=== PATIENT | male | born 1955 | race Caucasian/White ===

== ENCOUNTER 2016-07-16 12:10 | Emergency (ER) | payer OTHER, MEDICAID ==
[~2016-07-16] VITALS: Ht 182.9 cm; Wt 119.5 kg
[2016-07-16 13:01] LABS: Urine Bilirubin Negative (Negative); Urine Blood 2+ /uL (Negative); Urine Color Yellow (Yellow); Urine Glucose Normal (Normal); Urine Ketone Negative (Negative); Urine Nitrite Negative (Negative); Urine RBC 1636 /hpf (0 - 3); Urine Urobilinogen Normal (Negative)
[2016-07-16 13:04] LABS: Basophils # (auto) 0.1 uL; Basophils % (auto) 0.7 % (0.0-2.0); Eosinophils # (auto) 0.1 uL; Eosinophils % (auto) 1.2 % (0.0-7.0); Hematocrit 42.8 % (41.0-53.0); Hemoglobin 13.6 g/dL (13.5-17.5); Lymphocytes # (auto) 2.1 uL; Lymphocytes % (auto) 19.6 % (10.0-50.0); Mean Corpuscular Hemoglobin 27.3 pg (28.0-32.0); Mean Corpuscular Hgb Conc. 31.9 g/dL (32.0-36.0); Mean Corpuscular Volume 85.7 fL (80.0-100.0); Mean Platelet Volume 8.1 fL (7.4-10.4); Monocytes # (auto) 0.7 uL; Monocytes % (auto) 7.1 % (0.0-12.0); Neutrophils # (auto) 7.5 uL; Neutrophils % (auto) 71.4 % (37.0-80.0); Platelet Count (auto) 370 10^3/uL (140-450); Red Cell Distribution Width 14.4 % (11.6-16.0); White Blood Cell 10.5 10^3/uL (4.4-10.8)
[2016-07-16 13:23] LABS: Albumin 3.2 g/dL (3.4-5.0); BUN/Creatinine Ratio 9.3; Bilirubin, Total 0.5 mg/dL (0.2-1.0); Calcium 9.6 mg/dL (8.5-10.1); Total Protein 7.4 g/dL (6.4-8.2)
[2016-07-16 14:35] VITALS: BP 114/72
[2016-07-16] MEDS ORDERED: SODIUM CHLORIDE 0.9% 250 ML IV ONE (15:19)
[2016-07-16] MEDS ORDERED: SODIUM CHLORIDE 0.9% 1,000 ML IV ONE (15:19)
[2016-07-16] MEDS ORDERED: KETOROLAC TROMETH 30 MG/ML 1ML VIAL IV ONE (15:30)
== END 2016-07-16 16:37 | disposition home or self-care (01) ==
LOC: ER 12:18
DX: N20.0 Calculus of kidney (principal); I48.91 Unspecified atrial fibrillation; J44.9 Chronic obstructive pulmonary disease, unspecified; E11.9 Type 2 diabetes mellitus without complications; Z79.4 Long term (current) use of insulin; I10 Essential (primary) hypertension
CPT/HCPCS: 36415; 74176; 80053; 81001; 85025; 96374; 99285; J1885

== ENCOUNTER 2017-10-03 14:20 | Emergency (ER) | payer OTHER, MEDICAID ==
[~2017-10-03] VITALS: Ht 170.2 cm; Wt 136.1 kg
[2017-10-03 14:57] VITALS: BP 161/96
[2017-10-03] MEDS ORDERED: BACITRACIN TOP OINT 1 UD PKG TOP ONE (15:15)
[2017-10-03] MEDS ORDERED: LIDOCAINE 1% (LOCAL ANESTH.) PF 5ml SDV ID ONE (15:15)
== END 2017-10-03 16:09 | disposition home or self-care (01) ==
LOC: ER 14:20 → EDBD 14:20 → ER 16:09
DX: S91.312A Laceration without foreign body, left foot, initial encounter (principal); I48.91 Unspecified atrial fibrillation; J44.9 Chronic obstructive pulmonary disease, unspecified; E11.9 Type 2 diabetes mellitus without complications; I50.9 Heart failure, unspecified; X58.XXXA Exposure to other specified factors, initial encounter; Y93.89 Activity, other specified; Y92.89 Other specified places as the place of occurrence of the external cause; Y99.8 Other external cause status
CPT/HCPCS: 12004

== ENCOUNTER 2018-12-17 10:56 | Emergency (ER) | payer OTHER, MEDICAID ==
[~2018-12-17] VITALS: Ht 182.9 cm; Wt 99.8 kg
[2018-12-17] MEDS ORDERED: ONDANSETRON HCL 4 MG/2 ML VIAL IV ONE (11:30)
[2018-12-17] MEDS ORDERED: HYDROmorphone HCL 2 MG/ML VL IV ONE ×2 (11:30→14:15)
[2018-12-17] MEDS ORDERED: TETANUS-DIPTH-ACEL PERTUSSIS 0.5ML SYRG IM ONE (12:00)
[2018-12-17] MEDS ORDERED: cefTRIAXone 1GM/50ML D5W 50 ML IV ONE (15:30)
[2018-12-17] MEDS ORDERED: LIDOCAINE 1% HCL (LOCAL ANESTH.) INJ 20ML MDV ONE (15:40)
[2018-12-17 17:30] VITALS: BP 121/68
== END 2018-12-17 17:42 | disposition short-term general hospital (02) ==
LOC: EDBD 10:56 → ER 10:56
DX: S32.049A Unspecified fracture of fourth lumbar vertebra, initial encounter for closed fracture (principal); S41.111A Laceration without foreign body of right upper arm, initial encounter; I48.91 Unspecified atrial fibrillation; J44.9 Chronic obstructive pulmonary disease, unspecified; E11.9 Type 2 diabetes mellitus without complications; F17.210 Nicotine dependence, cigarettes, uncomplicated; W14.XXXA Fall from tree, initial encounter; Y93.89 Activity, other specified; Y99.8 Other external cause status; Y92.89 Other specified places as the place of occurrence of the external cause
CPT/HCPCS: 12004; 72128; 72131; 72192; 90471; 90715; 96365; 96375; 96376; 99285; J0696; J1170; J2001; J2405

== ENCOUNTER 2019-01-05 17:39 | Emergency (ER) | payer OTHER, MEDICAID ==
[~2019-01-05] VITALS: Ht 152.4 cm; Wt 108.9 kg
[2019-01-05] MEDS ORDERED: KETOROLAC TROMETH 60MG/2ML VIAL IM ONE (23:00)
[2019-01-05] MEDS ORDERED: HYDROcodone-ACET 10/325MG TAB PO ONE (23:00)
[2019-01-05 23:56] LABS: Basophils # (auto) 0.1 uL; Eosinophils # (auto) 0.1 uL; Nucleated Red Blood Cells % 0.1 %
[2019-01-05 23:58] LABS: Basophils % (auto) 0.9 % (0.0-2.0); Eosinophils % (auto) 0.7 % (0.0-7.0); Hematocrit 33.1 % (41.0-53.0); Hemoglobin 10.4 g/dL (13.5-17.5); Lymphocytes # (auto) 1.5 uL; Lymphocytes % (auto) 12.6 % (10.0-50.0); Mean Corpuscular Hemoglobin 26.7 pg (28.0-32.0); Mean Corpuscular Hgb Conc. 31.4 g/dL (32.0-36.0); Mean Corpuscular Volume 84.8 fL (80.0-100.0); Monocytes # (auto) 0.9 uL; Monocytes % (auto) 7.3 % (0.0-12.0); Neutrophils # (auto) 9.6 uL; Neutrophils % (auto) 78.5 % (37.0-80.0); Platelet Count (auto) 531 10^3/uL (140-450); Red Cell Distribution Width 16.1 % (11.8-14.3); White Blood Cell 12.3 10^3/uL (4.4-10.8)
[2019-01-06 00:10] LABS: Alanine Aminotransferase 24 U/L (16-61); Albumin 2.7 g/dL (3.4-5.0); Anion Gap 9 (5-15); Aspartate Aminotransferase 30 U/L (15-37); BUN/Creatinine Ratio 10.6; Blood Urea Nitrogen 12 mg/dL (7-18); Calcium 8.6 mg/dL (8.5-10.1); Carbon Dioxide 36 mmol/L (21-32); Chloride 91 mmol/L (98-107); GFR African American 84 mL/min; GFR Non-African American 69 mL/min; Glucose 116 mg/dL (74-106); Potassium 3.5 mmol/L (3.5-5.1); Sodium 136 mmol/L (136-145)
[2019-01-06 00:15] LABS: Alkaline Phosphatase 191 U/L (45-117); Bilirubin, Total 0.3 mg/dL (0.2-1.0); Total Protein 7.3 g/dL (6.4-8.2)
[2019-01-06 00:18] LABS: INR 1.12 (0.9-1.15)
[2019-01-06] MEDS ORDERED: MORPHINE SULFATE 4 MG/ML SYR/VIAL IV ONE (09:45)
[2019-01-06] MEDS ORDERED: ONDANSETRON HCL 4 MG/2 ML VIAL IV ONE (09:45)
[2019-01-06 10:56] VITALS: BP 102/57
== END 2019-01-06 11:34 | disposition short-term general hospital (02) ==
LOC: EDUNIT# 17:39 → ER 17:39
DX: S32.049D Unspecified fracture of fourth lumbar vertebra, subsequent encounter for fracture with routine healing (principal); S32.029D Unspecified fracture of second lumbar vertebra, subsequent encounter for fracture with routine healing; I48.91 Unspecified atrial fibrillation; J44.9 Chronic obstructive pulmonary disease, unspecified; E11.9 Type 2 diabetes mellitus without complications; I10 Essential (primary) hypertension; F17.210 Nicotine dependence, cigarettes, uncomplicated; W14.XXXD Fall from tree, subsequent encounter
CPT/HCPCS: 36415; 71045; 72131; 80053; 84484; 85025; 85610; 93005; 96372; 96374; 96375; 99285; J1885; J2270; J2405

== ENCOUNTER 2019-04-03 11:19 | Inpatient (IN) | payer OTHER, MEDICAID ==
[~2019-04-03] VITALS: Ht 182.9 cm; Wt 105.0 kg
[2019-04-03] MEDS ORDERED: IPRATROPIUM BROM 0.5 MG/2.5ML INH SOL HHN ONE (11:45)
[2019-04-03] MEDS ORDERED: methylPREDNISolone SOD SUCC 125 MG/2 ML VL IV ONE (11:45)
[2019-04-03] MEDS ORDERED: ALBUTEROL SULF 2.5 MG/0.5ML(0.5%) NEB SOLN HHN ONE (11:45)
[2019-04-03 13:18] LABS: Basophils # (auto) 0 uL; Basophils % (auto) 0.1 % (0.0-2.0); Eosinophils # (auto) 0 uL; Lymphocytes # (auto) 2.3 uL
[2019-04-03 13:21] LABS: Eosinophils % (auto) 0.2 % (0.0-7.0); Hematocrit 35.4 % (41.0-53.0); Hemoglobin 10.7 g/dL (13.5-17.5); Lymphocytes % (auto) 18.1 % (10.0-50.0); Mean Corpuscular Hemoglobin 22.2 pg (28.0-32.0); Mean Corpuscular Hgb Conc. 30.2 g/dL (32.0-36.0); Mean Corpuscular Volume 73.6 fL (80.0-100.0); Monocytes % (auto) 7.8 % (0.0-12.0); Neutrophils # (auto) 9.5 uL; Neutrophils % (auto) 73.8 % (37.0-80.0); Platelet Count (auto) 376 10^3/uL (140-450); Red Blood Cells 4.81 10^6/uL (4.5-5.90); Red Cell Distribution Width 18.4 % (11.8-14.3); White Blood Cell 12.9 10^3/uL (4.4-10.8)
[2019-04-03 13:37] LABS: Anion Gap 6 (5-15); Blood Urea Nitrogen 13 mg/dL (7-18); Calcium 8.3 mg/dL (8.5-10.1); Carbon Dioxide 31 mmol/L (21-32); Chloride 104 mmol/L (98-107); Glucose 157 mg/dL (74-106); Magnesium 2.2 mg/dL (1.6-2.6); Potassium 3.4 mmol/L (3.5-5.1); Sodium 141 mmol/L (136-145)
[2019-04-03 13:43] LABS: Alanine Aminotransferase 14 U/L (16-61); Alkaline Phosphatase 93 U/L (45-117); Aspartate Aminotransferase 11 U/L (15-37); BUN/Creatinine Ratio 21.7; Bilirubin, Total 0.5 mg/dL (0.2-1.0); GFR African American 174 mL/min; GFR Non-African American 144 mL/min; Total Protein 7.1 g/dL (6.4-8.2)
[2019-04-03] MEDS ORDERED: ONDANSETRON HCL 4 MG/2 ML VIAL IV PRN (14:15)
[2019-04-03] MEDS ORDERED: DEXTROSE (50%) 50ML SYRG IV PRN (14:15)
[2019-04-03] MEDS ORDERED: DILTIAZEM HCL 120MG ER CAP PO ONE (14:15)
[2019-04-03] MEDS ORDERED: MORPHINE SULF INJ 2 MG/ML SYRINGE 1ML IV PRN ×2 (14:15)
[2019-04-03] MEDS ORDERED: HYDROcodone-ACET 5/325MG TAB PO PRN (14:15)
[2019-04-03] MEDS ORDERED: ACETAMINOPHEN 500 MG TAB PO PRN (14:15)
[2019-04-03] MEDS ORDERED: NITROGLYCERIN 0.4 MG SL TAB SL PRN (14:15)
[2019-04-03] MEDS: AZITHROMYCIN 500MG/ 250ML 250 ML IV SCH (14:41)
[2019-04-03] MEDS: cefTRIAXone 1GM/50ML D5W 50 ML IV SCH (14:41)
[2019-04-03 15:19] VITALS: BP 134/66
[2019-04-03 16:32] VITALS: BP 125/76
[2019-04-03] MEDS: InsuLIN REG 1unit/0.01ml Soln (100units/ml) SC SCH ×2 (17:31→21:07)
[2019-04-03] MEDS: ACCU-CHEK COMFORT CURVE STRIP VI SCH ×2 (17:31→21:07)
[2019-04-03] MEDS: buPROPion HCL 75 MG TAB PO SCH (18:43)
[2019-04-03] MEDS: IPRATROPIUM BROM 0.5 MG/2.5ML INH SOL NEB SCH (19:33)
[2019-04-03] MEDS: ALBUTEROL SULF 2.5 MG/0.5ML(0.5%) NEB SOLN NEB SCH (19:33)
[2019-04-03] MEDS: ATORVASTATIN 20 MG TAB PO SCH (21:06)
--- NOTE | 2019-04-03 21:30 | NUR ---
requested patient to bring home medications in or a medication list to clarify all medications taken. patient is aware of eliquis, norco, and lasix. Patient confirmed he will have a friend to bring medications or medication list.
[2019-04-03 21:39] VITALS: BP 150/74
[2019-04-03 21:43] LABS: Alcohol, Urine < 3.0 mg/dL (0-5); Amphetamine Screen, Urine NEGATIVE (NEGATIVE); Barbiturate Scree,Urine NEGATIVE (NEGATIVE); Benzodiazephine Screen, Urine NEGATIVE (NEGATIVE); Cannabinoid Screen, Urine NEGATIVE (NEGATIVE); Cocaine Screen, Urine NEGATIVE (NEGATIVE); Opiate Scree,Urine POSITIVE (NEGATIVE); Phencyclidine Screen, Urine NEGATIVE (NEGATIVE)
[2019-04-03] MEDS ORDERED: HYDR-531 PO (22:00)
[2019-04-03] MEDS ORDERED: APIX5TAB PO (22:00)
--- NOTE | 2019-04-03 22:00 | NUR ---
called hospitalist Srikanth to notify patient requesting enoch matias q4, roberto. awaiting call back.
[2019-04-03] MEDS ORDERED: FURO1TAB33 PO (22:01)
--- NOTE | 2019-04-03 22:41 | NUR ---
Spoke to Srikanth hospitalist and notified him of patient requesting eliquis, norco 10, and lasix. Srikanth advised me that he will look into medications.
[2019-04-03] MEDS: HYDROcodone-ACET 10/325MG TAB PO PRN (23:13)
[2019-04-04] MEDS: ALBUTEROL SULF 2.5 MG/0.5ML(0.5%) NEB SOLN NEB SCH ×4 (00:03→18:29)
[2019-04-04] MEDS: IPRATROPIUM BROM 0.5 MG/2.5ML INH SOL NEB SCH ×4 (00:03→18:29)
[2019-04-04] MEDS ORDERED: LUBI24CA6 PO (00:42)
[2019-04-04] MEDS ORDERED: DUTACAP PO (00:42)
[2019-04-04] MEDS ORDERED: METH750T3 PO (00:42)
[2019-04-04] MEDS ORDERED: PRE1T PO (00:42)
[2019-04-04] MEDS ORDERED: GABA-339 PO (00:42)
[2019-04-04] MEDS ORDERED: FURO40TA4 PO (00:42)
[2019-04-04] MEDS ORDERED: PANT1INJ3 PO (00:42)
[2019-04-04] MEDS ORDERED: DULO20CA PO (00:42)
--- NOTE | 2019-04-04 01:15 | NUR ---
completed medication reconciliation
[2019-04-04] MEDS: HYDROcodone-ACET 10/325MG TAB PO PRN ×4 (05:04→20:59)
[2019-04-04 05:16] VITALS: BP 151/74
[2019-04-04 05:24] LABS: Basophils # (auto) 0 uL; Basophils % (auto) 0.1 % (0.0-2.0); Eosinophils # (auto) 0 uL; Eosinophils % (auto) 0.1 % (0.0-7.0); Hemoglobin 10.9 g/dL (13.5-17.5); Lymphocytes # (auto) 0.6 uL; Lymphocytes % (auto) 4.7 % (10.0-50.0); Mean Corpuscular Hemoglobin 22.2 pg (28.0-32.0); Mean Corpuscular Hgb Conc. 29.5 g/dL (32.0-36.0); Mean Corpuscular Volume 75.3 fL (80.0-100.0); Monocytes # (auto) 0.4 uL; Monocytes % (auto) 2.7 % (0.0-12.0); Neutrophils # (auto) 12.3 uL; Neutrophils % (auto) 92.4 % (37.0-80.0); Nucleated Red Blood Cells % 0.4 %; Platelet Count (auto) 396 10^3/uL (140-450); Red Blood Cells 4.92 10^6/uL (4.5-5.90); Red Cell Distribution Width 18.8 % (11.8-14.3); White Blood Cell 13.3 10^3/uL (4.4-10.8)
[2019-04-04 05:43] LABS: Calcium 8.4 mg/dL (8.5-10.1); Potassium 4.7 mmol/L (3.5-5.1)
[2019-04-04 05:49] LABS: Albumin 3.2 g/dL (3.4-5.0); BUN/Creatinine Ratio 24.2; Bilirubin, Total 0.4 mg/dL (0.2-1.0); Total Protein 6.7 g/dL (6.4-8.2)
[2019-04-04] MEDS: InsuLIN REG 1unit/0.01ml Soln (100units/ml) SC SCH ×4 (06:32→22:23)
[2019-04-04] MEDS: buPROPion HCL 75 MG TAB PO SCH (06:32)
[2019-04-04] MEDS: ACCU-CHEK COMFORT CURVE STRIP VI SCH ×4 (06:32→22:20)
--- NOTE | 2019-04-04 08:00 | NUR ---
OPENING SHIFT NOTE ASSUMED CARE OF THE PATIENT FROM THE METAL INSPECTOR RN. THE PATIENT IS A&OX4, NO SIGNS OR SYMPTOMS OF DISTRESS. EDUCATED THE PATIENT ON POC. THE PATIENT'S BED IS IN THE LOWEST, LOCKED POSITION AND CALL LIGHT IS WITHIN REACH. WILL ROUND HOURLY AND CONTINUE TO MONITOR.
[2019-04-04 08:45] VITALS: BP 148/57
--- NOTE | 2019-04-04 09:45 | NUR ---
[employer] REGIONAL TRUCK DRIVER CONSULT/SECURITY CALLED WENT IN WITH CLASS A REGIONAL TRUCK DRIVER BECAUSE THE PATIENT HAD SAID HE WAS LIVING IN HIS CAR AND A CONSULT WAS PLACED. THE GENERAL INSPECTOR, SANGITA, BEGAN TO ASK THE PATIENT QUESTIONS REGARDING HIS LIVING SITUATION AND IT WAS HARD TO KEEP HIM FOCUSED ON THE CONVERSATION. SANGITA TRIED TO REDIRECT THE CONVERSATION BACK TO THE ASSESSMENT OF HIS NEEDS BUT HE BEGAN SAYING "YOU AREN'T GOING TO HELP ME. YOU'RE JUST GONNA KICK ME OUT." TRIED TO REASSURE THE PATIENT THAT WE WERE TRYING TO HELP HIM BUT WE NEEDED TO ASSESS HIS NEEDS. HE BEGAN TO YELL OBSCENITIES AT SANGITA AND MYSELF AND BEGAN THREATENING SANGITA AND MYSELF. AT THAT POINT SECURITY WAS CALLED TO TRY AND CALM THE PATIENT. THE PATIENT EVENTUALLY CALMED DOWN, BUT EASILY BECAME AGITATED AGAIN. CHARGE NOTIFIED. WILL CONTINUE TO MONITOR.
[2019-04-04] MEDS ORDERED: POTASSIUM CHL 20 Meq TABLET PO SCH (10:00)
[2019-04-04] MEDS: AZITHROMYCIN 500MG/ 250ML 250 ML IV SCH (10:01)
[2019-04-04] MEDS: cefTRIAXone 1GM/50ML D5W 50 ML IV SCH (10:01)
[2019-04-04] MEDS: DILTIAZEM HCL 120MG ER CAP PO SCH (10:01)
[2019-04-04] MEDS: FAMOTIDINE 20 MG TAB PO SCH (10:02)
[2019-04-04] MEDS: APIXABAN 5 MG TAB PO SCH ×2 (10:02→22:15)
[2019-04-04 13:00] VITALS: BP 153/66
--- NOTE | 2019-04-04 15:21 | NUR ---
assessment Patient is a 63 year old male who is alert and oriented. Patients cognitive abilities are intact. Prior to admission patient was homeless for 1 day. Patient informed me he signed out AMA from [employer] on Tuesday and drove up here to the [facility] and slept in his car. Patient then came to ER on yesterday and was admitted. Patient was being very aggressive to Unique ARCOS and myself. Patient was cursing and making threats. Patient is asking for Morphine and Diloted. Security had to be called on patient. The family in A bed requested for her father to be moved to another room. Per report in MDT meeting patient is more calm now after security had a talk with him. I offered patient room and board resources. Patient has ss income of 900.00 per month. Patient refused homeless senior living. Patient has 02, rollator, wheelchair, hospital bed for home use. Arleen SW 1 will bring patient information on room and boards, homeless resources, and homeless waiver. Per patient he will return home to his prior living arrangements post discharge and family will transport him home. I informed patient he has a right to speak to a social services regarding all care. I informed patient he has a right to participate in any and all discharge planning. Patient does not have a POA and advanced directive. I have offered patient information on POA and advanced directives. I informed the patient the advantages and benefits of having an Advanced Directive. Patient verbalized understanding and agreed to discharge plan. Addendum: 04/04/19 at 1546 by Gaby ERVIN Amended: Links added.
--- NOTE | 2019-04-04 15:30 | NUR ---
Social Service consult to see pt who is homeless. Pt walked out of a SNF that he was placed. He is very angry yelling and threatening to the nurses. Clinical Assistant Professor II went in to do a consult and was forced to leave as he was acting threatening. He would not let the Clinical Assistant Professor speak. The nurse called security. However, shortly after that, pt started his acting out again. foundry worker I went in later on to give pt resources for finding a place to live. Pt stated [place] as he was not going to hand over his social security check. Pt states he has no family to turn to. He has a friend but states the friend is tired of helping him. Encouraged pt to call the board and cares for information.
--- NOTE | 2019-04-04 16:15 | NUR ---
Received Social Service Consult regarding pt's homelessness. Pt signed the homeless form and it was placed in his chart.
[2019-04-04 17:00] VITALS: BP 146/50
--- NOTE | 2019-04-04 17:06 | NUR ---
Paged Dr. Senior Paged the physician. The patient is very angry that he does not have the medications that he states the physician ordered.
--- NOTE | 2019-04-04 17:34 | NUR ---
DR. Miles returned call NEW ORDERS: AMBIEN 5 MG PO HS PRN AND NORCO 10/325 MG PO Q4HR PRN.
--- NOTE | 2019-04-04 19:40 | NUR ---
Advised patient that he has telemetry box off, pricilla said "i dont care, i dont need it and it keeps falling off". I assisted pricilla to put telemetry box back on.
--- NOTE | 2019-04-04 20:30 | NUR ---
Received report, and assumed care of patient. Walked into Amos's room, and patient immediately started to use a strong aggressive voice describing [employer]de[employer] RN and staff didnt do their jobs, and they were just playing games with his medications. patient used fowl language describing [employer] RN and staff. Reassured patient that scheduled medications that are ordered will be given approximately at 2200. Patient agreed with shift plan of action. Patient also refused bed alarm, use of call light and gets up with walker. Educated patient on fall precautions, bed alarm, and risks involved of not having bed alarm. patient verbally acknowledge education, and still refused to have bed alarm. Addendum: 04/05/19 at 0143 by Rudy Esparza RN Wrong time. Actual time given was 1919
--- NOTE | 2019-04-04 21:00 | NUR ---
Patient verbally aggressive towards ISRRAEL Ramirez. RN went into room and patient told him, "get the fuck out of my room". ISRRAEL left. Addendum: 04/05/19 at 0120 by Rudy Esparza RN ISRRAEL ramirez was assisting me with my patients.
[2019-04-04 22:00] VITALS: BP 137/76
--- NOTE | 2019-04-04 22:10 | NUR ---
Patient verbally aggressive towards me due to being late 5 mins for medication administration. Did educate patient prior that I will be there to administer medications approximately at 2200 and it can be earlier or later of 30 minutes of administration time. Called me multiple names, vulgar names, and using cuss words. Patient stated, "You're not doing you're job and you're a piece of shit, you're like that fat bitch nurse on dayshift, everybody is not helping me and other patients are getting VIP treatment?" I tried to explain to patient the rules, policies, medication administration, and safety precautions. Patient did not let me talk, refused education, used threatening words. For safety I walked out of room and the patient followed me to the door. I explained I will talk to the charge nurse, patient yelled, "Get the mallika charge nurse now!" social secretary Ailyn, and other RN's on unit witnessed patient behavior. Hitesh charge nurse on [facility] unit, spoke to patient and I was present. Hitesh explained medications, and safety precautions to patient. Patient calmed down a little but still verbally aggressive. Administered medications with Hitesh present in the room. Explained to patient, the staff and myself are only here to help him and we care for his well being. Patient stated "fuck off, nobody gives a fuck about me". Left room, patient resting in bed at this time. Will continue to monitor patient. Farzaneh Charge nurse notified of situation.
[2019-04-04] MEDS: methylPREDNISolone SOD SUCC 40 MG/ML VL IV SCH (22:14)
[2019-04-04] MEDS: ATORVASTATIN 20 MG TAB PO SCH (22:15)
[2019-04-04] MEDS: ZOLPIDEM TARTRATE 5 MG TAB PO PRN (22:17)
--- NOTE | 2019-04-04 23:00 | NUR ---
patient was trying to take off wrist band of POM (patients own medications), was forcefully trying to rip it off. Trying to educate Amos on the importance of having wrist band POM on, and amos says "I dont need you to lecture me like everybody else" amos still wants it off. Wrist band cut to prevent Amos harming himself.
[2019-04-05] MEDS: ALBUTEROL SULF 2.5 MG/0.5ML(0.5%) NEB SOLN NEB SCH ×4 (00:16→18:54)
[2019-04-05] MEDS: IPRATROPIUM BROM 0.5 MG/2.5ML INH SOL NEB SCH ×4 (00:17→18:54)
[2019-04-05] MEDS: HYDROcodone-ACET 10/325MG TAB PO PRN ×6 (02:38→22:09)
--- NOTE | 2019-04-05 02:50 | NUR ---
patient refused to have rail up on left side of bed. Educated the importance of having rail up, fall prevention, and patient Amos still refused to have rail up.
[2019-04-05 05:00] VITALS: BP 175/89
[2019-04-05] MEDS: methylPREDNISolone SOD SUCC 40 MG/ML VL IV SCH ×3 (05:00→22:09)
--- NOTE | 2019-04-05 05:09 | NUR ---
called security patient screaming and yelling and requesting pain medication. tried to explain to patient not time yet, there are time parameters. patient said " you have to give it when its due every 4 hours on time on the dot, and you have to wake me up". patient got verbally aggressive yelling and screaming. left room for safety purposes and called security. patient walked up to room door and started to slam door. [facility] charge nurse notified.
--- NOTE | 2019-04-05 05:22 | NUR ---
sean hospitalist to notify of elevated blood pressure. blood pressure data inputed in computer. awaiting hospitalist to call back or put orders in. Addendum: 04/05/19 at 0527 by Rudy Esparza RN 175/89 bp hr 72.
[2019-04-05] MEDS ORDERED: cloNIDine HCL 0.1 MG TAB PO ONE (06:00)
[2019-04-05 06:12] LABS: Basophils # (auto) 0 uL; Basophils % (auto) 0.1 % (0.0-2.0); Eosinophils # (auto) 0 uL; Hematocrit 35.2 % (41.0-53.0); Hemoglobin 10.6 g/dL (13.5-17.5); Lymphocytes # (auto) 0.4 uL; Lymphocytes % (auto) 3.7 % (10.0-50.0); Mean Corpuscular Hemoglobin 22.6 pg (28.0-32.0); Mean Corpuscular Hgb Conc. 30.2 g/dL (32.0-36.0); Mean Corpuscular Volume 74.8 fL (80.0-100.0); Monocytes # (auto) 0.1 uL; Monocytes % (auto) 1.2 % (0.0-12.0); Neutrophils # (auto) 9.7 uL; Platelet Count (auto) 354 10^3/uL (140-450); Red Blood Cells 4.71 10^6/uL (4.5-5.90); Red Cell Distribution Width 18.5 % (11.8-14.3)
[2019-04-05 06:13] LABS: White Blood Cell 10.2 10^3/uL (4.4-10.8)
[2019-04-05 06:34] LABS: Albumin 2.9 g/dL (3.4-5.0); Calcium 8.2 mg/dL (8.5-10.1); Magnesium 2.3 mg/dL (1.6-2.6); Potassium 4.9 mmol/L (3.5-5.1)
[2019-04-05] MEDS: ACCU-CHEK COMFORT CURVE STRIP VI SCH ×4 (06:34→22:10)
[2019-04-05] MEDS: InsuLIN REG 1unit/0.01ml Soln (100units/ml) SC SCH ×4 (06:37→22:10)
[2019-04-05 06:40] LABS: Bilirubin, Total 0.1 mg/dL (0.2-1.0); Phosphorus 2.4 mg/dL (2.5-4.90); Total Protein 6.8 g/dL (6.4-8.2)
--- NOTE | 2019-04-05 07:40 | NUR ---
Opening Note Received report from night time nanny RN. Patient is awake, alert and oriented x4. Patient is on 4L NC, denies shortness of breath at this time. Patient states pain 10/10 and is asking for pain medications. No medications are due at this time. Reviewed plan of care with patient, patient verbalized understanding. Bed in low and locked position, call light within reach. Will continue to monitor Q1 hour and PRN.
[2019-04-05 09:05] VITALS: BP 167/79
--- NOTE | 2019-04-05 09:11 | NUR ---
Dr. Miles at bedside Discussing plan of care with patient. No new orders received. Will continue to monitor Q1 hour and PRN.
[2019-04-05] MEDS: AZITHROMYCIN 500MG/ 250ML 250 ML IV SCH (10:14)
[2019-04-05] MEDS: DULoxetine HCL 30 MG CAP PO SCH (10:15)
[2019-04-05] MEDS: DILTIAZEM HCL 120MG ER CAP PO SCH (10:15)
[2019-04-05] MEDS: FAMOTIDINE 20 MG TAB PO SCH (10:15)
[2019-04-05] MEDS: FUROSEMIDE 40 MG TAB PO SCH (10:16)
[2019-04-05] MEDS: APIXABAN 5 MG TAB PO SCH ×2 (10:16→22:09)
--- NOTE | 2019-04-05 12:18 | NUR ---
Midline dressing change completed Patient tolerated well. Will continue to monitor Q1 hour and PRN
[2019-04-05 13:00] VITALS: BP 153/82
[2019-04-05 17:01] VITALS: BP 173/80
--- NOTE | 2019-04-05 18:55 | NUR ---
Paged hospitalist for elevated blood pressure Awaiting call back
--- NOTE | 2019-04-05 18:59 | NUR ---
Call back from Dr. Dennis New orders received for Labetol 10 IV Q2 PRN SBP>160. Will implement new orders. Will continue to monitor Q1 hour and PRN .
--- NOTE | 2019-04-05 19:25 | NUR ---
Closing Note Report given to sports editor RN. No signs or symptom of distress noted at this time.
[2019-04-05 19:45] VITALS: BP 159/63
[2019-04-05 21:50] VITALS: BP 172/84
[2019-04-05] MEDS: ZOLPIDEM TARTRATE 5 MG TAB PO PRN (22:09)
[2019-04-05] MEDS: ATORVASTATIN 20 MG TAB PO SCH (22:09)
[2019-04-05] MEDS: LABETALOL HCL 5 MG/ML ML 20ML VIAL IV PRN (22:59)
--- NOTE | 2019-04-06 00:01 | NUR ---
HOSPITALIST PAGED PATIENT STATING THAT NOSE IS DRY AND WOULD LIKE A NASAL SPRAY. WILL AWAIT CALL BACK OR ORDERS.
[2019-04-06] MEDS: IPRATROPIUM BROM 0.5 MG/2.5ML INH SOL NEB SCH ×4 (00:07→18:43)
[2019-04-06 05:15] VITALS: BP 167/75
[2019-04-06] MEDS: ALBUTEROL SULF 2.5 MG/0.5ML(0.5%) NEB SOLN NEB SCH ×3 (06:28→18:43)
[2019-04-06] MEDS: ACCU-CHEK COMFORT CURVE STRIP VI SCH ×4 (06:41→21:53)
[2019-04-06] MEDS: InsuLIN REG 1unit/0.01ml Soln (100units/ml) SC SCH ×4 (06:41→21:53)
[2019-04-06] MEDS: methylPREDNISolone SOD SUCC 40 MG/ML VL IV SCH ×3 (06:41→21:51)
[2019-04-06] MEDS: HYDROcodone-ACET 10/325MG TAB PO PRN ×5 (06:42→22:26)
[2019-04-06] MEDS: LABETALOL HCL 5 MG/ML ML 20ML VIAL IV PRN ×3 (06:42→21:52)
[2019-04-06 07:28] LABS: Basophils # (auto) 0 uL; Eosinophils # (auto) 0 uL; Hemoglobin 10.5 g/dL (13.5-17.5); Lymphocytes # (auto) 0.5 uL; White Blood Cell 12.9 10^3/uL (4.4-10.8)
[2019-04-06 07:33] LABS: Hematocrit 34.8 % (41.0-53.0); Mean Corpuscular Hemoglobin 22.2 pg (28.0-32.0); Mean Corpuscular Hgb Conc. 30.2 g/dL (32.0-36.0); Mean Corpuscular Volume 73.4 fL (80.0-100.0); Monocytes # (auto) 0.3 uL; Monocytes % (auto) 2.6 % (0.0-12.0); Neutrophils % (auto) 93.4 % (37.0-80.0); Platelet Count (auto) 353 10^3/uL (140-450); Red Blood Cells 4.74 10^6/uL (4.5-5.90); Red Cell Distribution Width 18.2 % (11.8-14.3)
[2019-04-06 07:45] LABS: Calcium 8.4 mg/dL (8.5-10.1); Magnesium 2.3 mg/dL (1.6-2.6); Potassium 4.4 mmol/L (3.5-5.1)
[2019-04-06 07:50] LABS: BUN/Creatinine Ratio 17.4; Bilirubin, Total 0.3 mg/dL (0.2-1.0); Phosphorus 2.8 mg/dL (2.5-4.90); Total Protein 6.8 g/dL (6.4-8.2)
[2019-04-06 08:06] LABS: INR 1.03 (0.9-1.15); Partial Thromboplastin Time 23.6 sec (23.64-32.05)
[2019-04-06] MEDS: SALINE 0.65 % NASAL SPRAY 45ML BOTTLE EACHNOSTRI SCH ×4 (08:40→21:51)
[2019-04-06 09:00] VITALS: BP 184/85
[2019-04-06] MEDS: AZITHROMYCIN 500MG/ 250ML 250 ML IV SCH (10:01)
[2019-04-06] MEDS: FAMOTIDINE 20 MG TAB PO SCH (10:02)
[2019-04-06] MEDS: FUROSEMIDE 40 MG TAB PO SCH (10:03)
[2019-04-06] MEDS: DILTIAZEM HCL 120MG ER CAP PO SCH (10:04)
[2019-04-06] MEDS: DULoxetine HCL 30 MG CAP PO SCH (10:05)
[2019-04-06] MEDS: APIXABAN 5 MG TAB PO SCH ×2 (10:05→21:53)
[2019-04-06 13:00] VITALS: BP 152/72
--- NOTE | 2019-04-06 14:55 | NUR ---
NUTRITION ASSESSMENT NOTES Please refer to link notes of nutrition screen form filed under the intervention section of the plan of care for further details. Est. Needs: 2000 kcal to 2650 kcal (20-25 kcal/kgBW), 86 gms to 105 gms pro (0.8-1.0 gms/kgBW). Will continue to monitor pertinent labs and reassess nutrient need prn Thank you. Addendum: 04/06/19 at [address] Amended: Links added.
[2019-04-06 15:10] VITALS: BP 152/72
[2019-04-06 17:19] VITALS: BP 160/76
--- NOTE | 2019-04-06 19:05 | NUR ---
Discharge planning per SS consult, patient has orders to dc to SNF for PT. Referral was sent to [facility] and [facility]. Auth and acceptance are pending. On-call Christelle, will follow up on 04.07.19, Tuesday to see if patient is accepted at [facility] and if so will contact [facility] on-call for auth.
--- NOTE | 2019-04-06 19:10 | NUR ---
Opening Shift Note Assumed care of patient, awake and alert. No S/S of distress/SOB or pain. Instructed on POC and to call for assist PRN, will continue to monitor for changes Q1hr and PRN.
--- NOTE | 2019-04-06 19:32 | NUR ---
Closing Note Report given to cnc machinist 2nd shift RN. No signs or symptoms of distress noted at this time.
[2019-04-06 21:00] VITALS: BP 180/78
--- NOTE | 2019-04-06 21:50 | NUR ---
Patient is alert and orientated x4, patient currently yelling Tamika ARCOS when asked to verify name and for medication administration; explained to patient our policy and why we double check. Patient's BP 180/78 administered Labetalol HCl as ordered will reassess. Patient's BS 404, rechecked BS 374. Will continue to monitor.
[2019-04-06] MEDS: ATORVASTATIN 20 MG TAB PO SCH (21:53)
--- NOTE | 2019-04-06 22:20 | NUR ---
Patient yelling for pain medication stating "It was due at 2215" explained to patient his pain medication is not scheduled instead it is given as needed. I told patient that it would be a few minutes to gather his pain medication; patient began yelling. I told the patient that other nurses are currently ahead of me on the pyxis, patient stated "I don't give a fuck about the other patients I want my pain meds now!". Informed Nikki Guerrier RN that patient continues to yell at me. Will continue to monitor.
--- NOTE | 2019-04-06 22:26 | NUR ---
Patient yelling at Tamika ARCOS during pain medication administration, because RN is verifying name, , and asking pain scale before medication administration. After administrating the pain medication patient threw the medication cup at RN. Informed Nikki Guerrier RN of patient's behavior.
[2019-04-06] MEDS: ZOLPIDEM TARTRATE 5 MG TAB PO PRN (22:42)
--- NOTE | 2019-04-06 23:18 | NUR ---
Transferred care to Thor ARCOS.
--- NOTE | 2019-04-06 23:18 | NUR ---
Assumed care of patient from ISRRAEL Lundberg. Patient is agitated but otherwise shows no distress. Will continue to monitor.
--- NOTE | 2019-04-06 23:59 | NUR ---
Angie hospitalist for continued elevated blood pressure of 172/69 with MAP of 102, HR of 68. Labetalol 10 mg IV given q 2 hours at 2152 and 1805 but systolic BP has remained in the 170s-180s. Patient states he takes Diltiazem 120 mg PO daily at home and that usually controls his BP but we are giving him Diltiazem already and his BP remains high. Patient was given Clonidine 0.1 mg PO once 2 days ago as well but that only dropped his blood pressure down to 160s.
[2019-04-07] MEDS ORDERED: DILT60TA28 PO (00:08)
[2019-04-07] MEDS: LABETALOL HCL 5 MG/ML ML 20ML VIAL IV PRN ×2 (00:38→22:06)
--- NOTE | 2019-04-07 00:53 | NUR ---
Spoke to MD Hillman regarding continued elevated blood pressure. Order: hydralazine 50 mg PO q 8 hrs PRN elevated blood pressure. Addendum: 04/07/19 at 0224 by KIKE VALDERRAMA RN Per , Let patient sleep until 0500 vital sign check to reassess BP again. Patient may be sleep deprived.
[2019-04-07] MEDS ORDERED: hydrALAZINE HCL 25 MG TAB PO PRN (01:00)
[2019-04-07] MEDS: HYDROcodone-ACET 10/325MG TAB PO PRN ×6 (02:15→22:47)
[2019-04-07 05:00] VITALS: BP 156/82
[2019-04-07] MEDS: SALINE 0.65 % NASAL SPRAY 45ML BOTTLE EACHNOSTRI SCH ×4 (06:14→21:39)
[2019-04-07] MEDS: methylPREDNISolone SOD SUCC 40 MG/ML VL IV SCH ×4 (06:14→21:39)
[2019-04-07] MEDS: InsuLIN REG 1unit/0.01ml Soln (100units/ml) SC SCH ×4 (06:15→21:40)
[2019-04-07] MEDS: ACCU-CHEK COMFORT CURVE STRIP VI SCH ×4 (06:15→21:40)
[2019-04-07] MEDS: hydrALAZINE HCL 25 MG TAB PO PRN ×2 (06:16→17:02)
[2019-04-07] MEDS: ALBUTEROL SULF 2.5 MG/0.5ML(0.5%) NEB SOLN NEB SCH ×3 (06:20→18:30)
[2019-04-07] MEDS: IPRATROPIUM BROM 0.5 MG/2.5ML INH SOL NEB SCH ×4 (06:20→18:30)
--- NOTE | 2019-04-07 07:50 | NUR ---
Morning note Assumed care of patient, awake and alert. No S/S of distress/SOB or pain. Bed in lowest position, breaks locked side rails up x2,call light with in reach. Instructed on POC and to call for assist PRN, will continue to monitor for changes Q1hr and PRN.
[2019-04-07 09:00] VITALS: BP 141/97
[2019-04-07] MEDS ORDERED: DEXTROSE (50%) 50ML SYRG IV PRN (09:15)
[2019-04-07] MEDS: AZITHROMYCIN 500MG/ 250ML 250 ML IV SCH (10:40)
[2019-04-07] MEDS: FAMOTIDINE 20 MG TAB PO SCH (10:41)
[2019-04-07] MEDS: DULoxetine HCL 30 MG CAP PO SCH (10:42)
[2019-04-07] MEDS: FUROSEMIDE 40 MG TAB PO SCH (10:42)
[2019-04-07] MEDS: APIXABAN 5 MG TAB PO SCH ×2 (10:42→21:39)
[2019-04-07] MEDS: DILTIAZEM HCL 120MG ER CAP PO SCH (10:43)
--- NOTE | 2019-04-07 10:53 | NUR ---
Patient signed AMA to go outside to his car to grab his dentures. Patient educated about risk of leaving the hospital. Patient verbalize understanding and left floor.
--- NOTE | 2019-04-07 11:53 | NUR ---
Paged doctor Kendall to inform of patient blood glucose of 440. Awaiting call back.
--- NOTE | 2019-04-07 12:38 | NUR ---
Doctor Kendall aware of high blood glucose 440 and 457. No new orders received.
[2019-04-07 13:00] VITALS: BP 134/66
--- NOTE | 2019-04-07 14:41 | NUR ---
Pt being d/c'd by PT. Pt is independent using FWW Addendum: 04/07/19 at 1442 by Jayshree Rolle PT Amended: Links added.
[2019-04-07 17:00] VITALS: BP 163/78
--- NOTE | 2019-04-07 18:50 | NUR ---
Closing note Patient awake and alert, resting in bed respirations are even and unlabored, no S/S of distress noted. Bed in lowest position, breaks locked, side rails up x2, call light with in reach.
--- NOTE | 2019-04-07 19:40 | NUR ---
Opening Shift Note Assumed care of patient, awake and alert. Instructed on POC and to call for assist PRN. Bed in lowest locked position, call light within reach, side rails up x2, fall precautions in place. Will continue to monitor for changes Q1hr and PRN.
[2019-04-07 21:00] VITALS: BP 179/81
[2019-04-07] MEDS: ATORVASTATIN 20 MG TAB PO SCH (21:39)
[2019-04-07] MEDS: ZOLPIDEM TARTRATE 5 MG TAB PO PRN (21:39)
[2019-04-08] MEDS: HYDROcodone-ACET 10/325MG TAB PO PRN ×6 (02:43→23:51)
[2019-04-08] MEDS: hydrALAZINE HCL 25 MG TAB PO PRN ×3 (04:15→21:41)
[2019-04-08 04:30] VITALS: BP 188/78
[2019-04-08 05:25] VITALS: BP 159/82
--- NOTE | 2019-04-08 05:25 | NUR ---
BP Reassessment Reassessment after HydrALAZINE (see eMAR), BP 159/82 mmHg. Will continue to monitor. Signed: 04/08/19 at 05 by OMID BRAVO SN <Co-Signature Required> Co-Signed: 04/08/19 at 0538 by ROSALIA DALY OCA, RN
[2019-04-08 06:11] LABS: BUN/Creatinine Ratio 27.2; Calcium 8.1 mg/dL (8.5-10.1); Magnesium 2.4 mg/dL (1.6-2.6); Potassium 4.4 mmol/L (3.5-5.1)
[2019-04-08] MEDS: InsuLIN REG 1unit/0.01ml Soln (100units/ml) SC SCH ×4 (06:47→21:46)
[2019-04-08] MEDS: SALINE 0.65 % NASAL SPRAY 45ML BOTTLE EACHNOSTRI SCH ×4 (06:47→21:43)
[2019-04-08] MEDS: ACCU-CHEK COMFORT CURVE STRIP VI SCH ×4 (06:47→21:46)
[2019-04-08] MEDS: IPRATROPIUM BROM 0.5 MG/2.5ML INH SOL NEB SCH ×5 (07:45→23:26)
[2019-04-08] MEDS: ALBUTEROL SULF 2.5 MG/0.5ML(0.5%) NEB SOLN NEB SCH ×4 (07:45→23:26)
--- NOTE | 2019-04-08 07:55 | NUR ---
Morning note Assumed care of patient awake and alert, sitting up in bed with eyes open. Respiration even and unlabored. No S/S of distress noted. Bed in lowest position, breaks locked, side rails up x2, call light with in reach. Patient informed of POC. Will continue to monitor q 1Hr and PRN.
[2019-04-08] MEDS: methylPREDNISolone SOD SUCC 40 MG/ML VL IV SCH (08:50)
[2019-04-08] MEDS: AZITHROMYCIN 500MG/ 250ML 250 ML IV SCH (08:51)
[2019-04-08] MEDS: FAMOTIDINE 20 MG TAB PO SCH (08:52)
[2019-04-08] MEDS: APIXABAN 5 MG TAB PO SCH ×2 (08:53→21:41)
[2019-04-08] MEDS: FUROSEMIDE 40 MG TAB PO SCH (08:53)
[2019-04-08] MEDS: DILTIAZEM HCL 120MG ER CAP PO SCH (08:53)
[2019-04-08] MEDS: methIMAzole 5 MG TAB PO SCH (08:54)
[2019-04-08] MEDS: DULoxetine HCL 30 MG CAP PO SCH (08:55)
[2019-04-08 09:00] VITALS: BP 144/66
[2019-04-08 12:56] VITALS: BP 150/94
--- NOTE | 2019-04-08 15:10 | NUR ---
Discharge planning per SS consult, patient has orders to dc to [facility]. Referral faxed, spoke with Director of Nurses [phone] and rep Alvarez [phone] and was advised that they will accept, and are requesting auth. Obtained auth from [facility] on-call high risk case manager Karime [phone]. For SNF-[id number], and for [id number]. I did not see a discharge order and at this time have not been provided with an accepting doctor and/or room number/bed from [facility]. Advised nurse Makenna, I will follow up in the am on 04.09.19 for additional discharge planning. She verbalized understanding.
--- NOTE | 2019-04-08 17:05 | NUR ---
CRITICAL BLOOD GLUCOSE READING TOOK PATIENT BLOOD SUGAR WAS 450 DID REPEAT WAS 467. PATIENT THEN STATED "I TOLD YOU IT WOULD BE HIGH" THEN OPENED BOTTOM DRAWER OF DRESSER AND IT WAS FILLED WITH ASSORTED CANDIES. PATIENT WAS INFORMED THAT EATING LOTS OF CANDY IS CAUSING HIS HIGH BLOOD SUGAR PATIENT STATED "I DONT CARE AND ILL DO WHAT I WANT" PATIENT WAS VERY AGGRESSIVE AND BEGAN USING CURSE WORDS. PATIENT WAS EDUCATED ON RISK OF HIGH BLOOD SUGAR AND THE IMPORTANCE OF PROPER DIET PATIENT STATED "I DONT CARE". WILL INFORM MD OF NONCOMPLIANCE AND HIGH BLOOD GLUCOSE READING.
--- NOTE | 2019-04-08 17:20 | NUR ---
INFORMED DOCTOR ILA ABOUT PATIENT BLOOD GLUCOSE OF 450 AND SECOND READING 467. NO NEW ORDERS RECEIVED. WILL CONTINUE TO MONITOR.
[2019-04-08 17:30] VITALS: BP 147/78
--- NOTE | 2019-04-08 19:00 | NUR ---
OPENING NOTE Received report from day shift RN. Patient is A&O X's 4 with no s/s of distress noted. Educated patient on POC and to use call light when in need of assistance. Bed is in lowest/locked position with side rails up X's 2 and call light is within reach of patient. Patient has walker at bedside. Will continue care.
[2019-04-08] MEDS: ZOLPIDEM TARTRATE 5 MG TAB PO PRN (21:40)
[2019-04-08] MEDS: ATORVASTATIN 20 MG TAB PO SCH (21:41)
[2019-04-08 22:00] VITALS: BP 151/71
[2019-04-09] MEDS: HYDROcodone-ACET 10/325MG TAB PO PRN ×3 (03:51→12:05)
[2019-04-09 05:00] VITALS: BP 158/77
[2019-04-09] MEDS: SALINE 0.65 % NASAL SPRAY 45ML BOTTLE EACHNOSTRI SCH ×2 (06:00→12:30)
[2019-04-09] MEDS: ACCU-CHEK COMFORT CURVE STRIP VI SCH ×2 (06:16→11:30)
[2019-04-09] MEDS: InsuLIN REG 1unit/0.01ml Soln (100units/ml) SC SCH ×2 (06:16→12:30)
[2019-04-09] MEDS: IPRATROPIUM BROM 0.5 MG/2.5ML INH SOL NEB SCH ×2 (07:24→12:20)
[2019-04-09] MEDS: ALBUTEROL SULF 2.5 MG/0.5ML(0.5%) NEB SOLN NEB SCH ×2 (07:24→12:20)
[2019-04-09] MEDS: AZITHROMYCIN 500MG/ 250ML 250 ML IV SCH (08:24)
[2019-04-09] MEDS: DILTIAZEM HCL 120MG ER CAP PO SCH (08:25)
[2019-04-09] MEDS: methIMAzole 5 MG TAB PO SCH (08:26)
[2019-04-09] MEDS: DULoxetine HCL 30 MG CAP PO SCH (08:28)
[2019-04-09] MEDS: APIXABAN 5 MG TAB PO SCH (08:28)
[2019-04-09] MEDS: FAMOTIDINE 20 MG TAB PO SCH (08:29)
[2019-04-09] MEDS: FUROSEMIDE 40 MG TAB PO SCH (08:39)
[2019-04-09 09:00] VITALS: BP 173/86
[2019-04-09] MEDS ORDERED: predniSONE 20 MG TAB PO ONE (09:00)
[2019-04-09] MEDS ORDERED: InsuLIN REG 1unit/0.01ml Soln (100units/ml) ONE (12:21)
--- NOTE | 2019-04-09 12:30 | NUR ---
TRANSFER PATIENT REFUSING TRANSPORTATION TO SNF STATING "HE DOESN'T WANT TO LEAVE HIS CAR AND BELONGINGS HERE." . DR THORPE EXPLAINED RISKS OF REFUSING TRANSPORTATION. PATIENT STILL REFUSING TRANSPORTATION AND STATES "HE WILL GO STRAIGHT TO [facility]." DR THORPE INFORMED PATIENT "HE HAS 30 MINUTES FROM LEAVING HOSPITAL TO REPORTING INTO [facility]." PATIENT VERBALIZED UNDERSTANDING.
[2019-04-09 13:00] VITALS: BP 169/89
--- NOTE | 2019-04-09 13:20 | NUR ---
REPORT CALLED IN REPORT TO ISRRAEL SO AT [facility].
--- NOTE | 2019-04-09 13:38 | NUR ---
PHONE CALL RECEIVED PHONE CALL FROM ISRRAEL SO AT [facility]. JUDAH STATED "PATIENT NEEDS TO COME WITH [facility]LINE DUE TO IV ANTIBIOTICS OR THEY CANNOT ACCEPT HIM." INFORMED JUDAH PATIENT IS REFUSING TRANSPORTATION. NOTIFIED MD REQUESTING TO SWITCH TO PO ANTIBIOTICS. AWAITING RETURN CALL
--- NOTE | 2019-04-09 13:44 | NUR ---
PAGED PAGEGrant THORPE RE: PATIENT'S TRANSER. AWAITING RETURN CALL
--- NOTE | 2019-04-09 14:07 | NUR ---
PHONE CALL DR THORPE RETURNED PHONE CALL. NEW ORDERS RECEIVED/CARRIED OUT. WILL CONTINUE TO MONITOR
--- NOTE | 2019-04-09 14:30 | NUR ---
Discharge instructions given as ordered. Patient refusing transportation to [facility]. Patient transporting self. Removed midline, tele monitor. All home medications returned to patient. Tele monitor returned to ICU. RN escorted patient and all belongings to patient car. Called ISRRAEL Mejia at [facility] informing her patient is on his way. All questions/concerns answered.
[2019-04-09 14:33] VITALS: BP 166/84
[2019-04-10] MEDS ORDERED: predniSONE 20 MG TAB PO ONE (09:00)
[2019-04-11] MEDS ORDERED: predniSONE 20 MG TAB PO ONE (09:00)
== END 2019-04-09 14:30 | disposition left against medical advice (07) | DRG 189 ==
LOC: ER 11:20 → TELE-WESTW 15:24
PROVIDERS: ADMIT Emergency Medicine; ATTEND Internal Medicine
DX: J96.20 Acute and chronic respiratory failure, unspecified whether with hypoxia or hypercapnia (principal); J44.1 Chronic obstructive pulmonary disease with (acute) exacerbation; I50.22 Chronic systolic (congestive) heart failure; I47.1 Supraventricular tachycardia; E44.0 Moderate protein-calorie malnutrition; D50.9 Iron deficiency anemia, unspecified; E66.9 Obesity, unspecified; E78.00 Pure hypercholesterolemia, unspecified; E78.5 Hyperlipidemia, unspecified; E87.6 Hypokalemia; I11.0 Hypertensive heart disease with heart failure; I48.91 Unspecified atrial fibrillation; E05.90 Thyrotoxicosis, unspecified without thyrotoxic crisis or storm; E11.65 Type 2 diabetes mellitus with hyperglycemia; F32.9 Major depressive disorder, single episode, unspecified; G89.21 Chronic pain due to trauma; I08.0 Rheumatic disorders of both mitral and aortic valves; I16.0 Hypertensive urgency; I27.29 Other secondary pulmonary hypertension; G47.9 Sleep disorder, unspecified; F41.9 Anxiety disorder, unspecified; G62.9 Polyneuropathy, unspecified; K21.9 Gastro-esophageal reflux disease without esophagitis; F17.210 Nicotine dependence, cigarettes, uncomplicated; I70.0 Atherosclerosis of aorta; T38.0X5A Adverse effect of glucocorticoids and synthetic analogues, initial encounter; Z59.0 Homelessness; Z85.828 Personal history of other malignant neoplasm of skin; Z99.81 Dependence on supplemental oxygen; Y92.89 Other specified places as the place of occurrence of the external cause; Z79.899 Other long term (current) drug therapy; Z68.31 Body mass index [BMI] 31.0-31.9, adult
CPT/HCPCS: 36415; 71045; 80048; 80053; 80061; 80307; 82962; 83036; 83605; 83735; 83880; 84100; 84439; 84443; 84484; 85025; 85610; 85730; 87040; 87081; 87804; 93005; 93306; 94640; 94644; 94761; 96365; 96368; 96375; G0378; J0696; J1815

== ENCOUNTER 2020-05-10 10:03 | Inpatient (IN) | payer OTHER, MEDICAID ==
[~2020-05-10] VITALS: Ht 182.9 cm; Wt 136.1 kg
[~2020-05-10 10:03] MED LIST: APIX5TAB PO; DILT60TA28 PO; DULO20CA PO; DUTACAP PO; FURO40TA4 PO; GABA-339 PO; HYDR-531 PO; LUBI24CA6 PO; METH750T3 PO; PANT1INJ3 PO; PRE1T PO
[2020-05-10] MEDS ORDERED: methylPREDNISolone SOD SUCC 125 MG/2 ML VL IV ONE (10:15)
[2020-05-10] MEDS ORDERED: FUROSEMIDE 40 MG/4 ML VIAL IV ONE (10:15)
[2020-05-10] MEDS ORDERED: AMIODARONE HCL 150 MG in D5W 5% 100 ML IV ONE (10:15)
[2020-05-10] MEDS ORDERED: AMIODARONE 450mg/250ml AE 250 ML IV SCH (10:30)
[2020-05-10 10:48] LABS: Basophils # (auto) 0.1 10 ^3/uL (0-0.2); Eosinophils # (auto) 0 10 ^3/uL (0-0.8); Nucleated Red Blood Cells % 0.1 %
[2020-05-10 10:50] LABS: Basophils % (auto) 0.6 % (0.0-2.0); Eosinophils % (auto) 0.2 % (0.0-7.0); Hematocrit 43.9 % (41.0-53.0); Hemoglobin 13.7 g/dL (13.5-17.5); Lymphocytes # (auto) 1.2 10 ^3/uL (0.4-5.4); Lymphocytes % (auto) 10.2 % (10.0-50.0); Mean Corpuscular Hemoglobin 27.1 pg (28.0-32.0); Mean Corpuscular Hgb Conc. 31.1 g/dL (32.0-36.0); Mean Corpuscular Volume 87.1 fL (80.0-100.0); Monocytes # (auto) 1.1 10 ^3/uL (0-1.3); Monocytes % (auto) 9.5 % (0.0-12.0); Neutrophils # (auto) 9.5 10 ^3/uL (1.6-8.6); Neutrophils % (auto) 79.5 % (37.0-80.0); Platelet Count (auto) 152 10^3/uL (140-450); Red Blood Cells 5.05 10^6/uL (4.5-5.90); Red Cell Distribution Width 19.7 % (11.8-14.3)
[2020-05-10 11:06] LABS: INR 1.62 (0.9-1.15); Partial Thromboplastin Time 28.9 sec (23.0-31.2)
[2020-05-10 11:14] LABS: Calcium 8.2 mg/dL (8.5-10.1); Potassium 4.9 mmol/L (3.5-5.1)
[2020-05-10] MEDS ORDERED: LORazepam 2MG/ML-1ML VIAL IV ONE (11:15)
[2020-05-10 11:20] LABS: BUN/Creatinine Ratio 34.9; Bilirubin, Total 2.4 mg/dL (0.2-1.0); Total Protein 5.7 g/dL (6.4-8.2)
[2020-05-10 12:07] LABS: Urine Bacteria NONE SEEN /hpf (None Seen); Urine Blood Negative /uL (Negative); Urine Hyaline Cast MOD /lpf (0 - 2); Urine Mucus FEW (None Seen); Urine WBC 2 /hpf (0 - 3)
[2020-05-10] MEDS ORDERED: SUCCINYLCHOLINE CHLORIDE 20 MG/ML 10ML VIAL IV ONE ×2 (12:12→12:30)
[2020-05-10] MEDS ORDERED: ETOMIDATE (2MG/ML) 20ML VIAL IV ONE ×2 (12:12→12:30)
[2020-05-10] MEDS ORDERED: PROPOFOL 100 ML IV ONE (12:13)
[2020-05-10] MEDS ORDERED: DOXYCYCLINE 100MG/250ML 250 ML IV ONE (12:15)
[2020-05-10] MEDS: PROPOFOL 100 ML IV SCH (12:24)
[2020-05-10 12:26] VITALS: BP 105/75
[2020-05-10] MEDS ORDERED: NOREPINEPHRINE 8 MG/250ML KIT 250 ML IV ONE (12:57)
[2020-05-10] MEDS: NOREPINEPHRINE 8 MG/250ML KIT 250 ML IV SCH (13:45)
[2020-05-10] MEDS ORDERED: ACETAMINOPHEN 500 MG TAB PO PRN (15:00)
[2020-05-10] MEDS ORDERED: NITROGLYCERIN 0.4 MG SL TAB SL PRN (15:00)
[2020-05-10] MEDS ORDERED: HYDROcodone-ACET 5/325MG TAB PO PRN (15:00)
[2020-05-10] MEDS ORDERED: MORPHINE SULF INJ 2 MG/ML SYRINGE 1ML IV PRN ×2 (15:00)
[2020-05-10] MEDS ORDERED: ALBUTEROL SULF HFA 90MCG INH 200DOSE IN PRN (15:00)
[2020-05-10] MEDS ORDERED: REMDESIVIR PER PHARMACY 0 ML IV SCH ×2 (15:00→15:15)
[2020-05-10] MEDS ORDERED: ONDANSETRON HCL 4 MG/2 ML VIAL IV PRN (15:00)
[2020-05-10] MEDS ORDERED: DEXTROSE (50%) 50ML SYRG IV PRN (15:00)
[2020-05-10] MEDS ORDERED: REMDESIVIR 200 MG in NS 210ml LOADING DOSE ADULT IV ONE (16:00)
[2020-05-10 16:30] LABS: CRP High Sensitivity 1.59 mg/dL (< 0.3)
[2020-05-10] MEDS: ACCU-CHEK COMFORT CURVE STRIP VI SCH ×2 (17:40→23:24)
[2020-05-10] MEDS: InsuLIN REG 1unit/0.01ml Soln (100units/ml) SC SCH ×2 (18:10→23:11)
[2020-05-10 18:15] VITALS: BP 120/82
[2020-05-10] MEDS ORDERED: AMIODARONE 450mg/250ml AE 250 ML IV ONE (18:58)
[2020-05-10] MEDS: AMIODARONE 450mg/250ml AE 250 ML IV SCH (19:15)
[2020-05-10] MEDS: fentaNYL Drip 2500mCg/250mlNS 250 ML IV SCH (20:37)
[2020-05-10] MEDS: ENOXAPARIN SOD 40 MG/0.4 ML SYRINGE SC SCH (21:35)
[2020-05-10] MEDS: BUDESONIDE (INHALATION) 180 MCG IH IN SCH (22:00)
[2020-05-11] MEDS: PROPOFOL 100 ML IV SCH ×2 (01:12→15:55)
[2020-05-11 02:04] VITALS: BP 102/70
[2020-05-11] MEDS: ACCU-CHEK COMFORT CURVE STRIP VI SCH ×3 (05:05→18:06)
[2020-05-11 05:10] LABS: Basophils # (auto) 0 10 ^3/uL (0-0.2); Eosinophils # (auto) 0 10 ^3/uL (0-0.8); Hemoglobin 13.1 g/dL (13.5-17.5)
[2020-05-11 05:12] LABS: Basophils % (auto) 0.2 % (0.0-2.0); Hematocrit 41.4 % (41.0-53.0); Lymphocytes # (auto) 0.6 10 ^3/uL (0.4-5.4); Lymphocytes % (auto) 7.5 % (10.0-50.0); Mean Corpuscular Hemoglobin 27.2 pg (28.0-32.0); Mean Corpuscular Hgb Conc. 31.6 g/dL (32.0-36.0); Mean Corpuscular Volume 85.9 fL (80.0-100.0); Monocytes # (auto) 0.5 10 ^3/uL (0-1.3); Monocytes % (auto) 7.2 % (0.0-12.0); Neutrophils # (auto) 6.3 10 ^3/uL (1.6-8.6); Neutrophils % (auto) 85.1 % (37.0-80.0); Nucleated Red Blood Cells % 0.2 %; Platelet Count (auto) 123 10^3/uL (140-450); Red Blood Cells 4.82 10^6/uL (4.5-5.90); Red Cell Distribution Width 19.2 % (11.8-14.3); White Blood Cell 7.4 10^3/uL (4.4-10.8)
[2020-05-11 05:31] LABS: Albumin 2.9 g/dL (3.4-5.0); BUN/Creatinine Ratio 36.4; Potassium 4.2 mmol/L (3.5-5.1)
[2020-05-11 05:34] LABS: Total Protein 5.5 g/dL (6.4-8.2)
[2020-05-11] MEDS: InsuLIN REG 1unit/0.01ml Soln (100units/ml) SC SCH ×3 (05:40→18:15)
[2020-05-11 06:50] VITALS: BP 96/66
[2020-05-11] MEDS: BUDESONIDE (INHALATION) 180 MCG IH IN SCH (09:23)
[2020-05-11] MEDS: NOREPINEPHRINE 8 MG/250ML KIT 250 ML IV SCH (11:12)
[2020-05-11] MEDS: cefTRIAXone 1GM/50ML D5W 50 ML IV SCH (11:25)
[2020-05-11] MEDS: DexAMETHasone SOD PHOS 10MG/1ML VIAL INJ IV SCH ×2 (11:25→14:54)
[2020-05-11] MEDS: AZITHROMYCIN 500MG/D5WorNS 250ml IV SCH (11:25)
[2020-05-11] MEDS: ZINC SULFATE 220mg CAP or TAB PO SCH (11:25)
[2020-05-11] MEDS: CHOLECALCIFEROL (VITD3) 2,000 UNIT CAP PO SCH (11:26)
[2020-05-11] MEDS: ENOXAPARIN SOD 40 MG/0.4 ML SYRINGE SC SCH ×2 (11:26→22:12)
[2020-05-11] MEDS: ASCORBIC ACID 1,000 MG TAB PO SCH (11:26)
[2020-05-11 14:13] VITALS: BP 90/45
[2020-05-11] MEDS: REMDESIVIR 100 MG in SODIUM CHL 0.9% 250 ML IV SCH (14:54)
[2020-05-11] MEDS: fentaNYL Drip 2500mCg/250mlNS 250 ML IV SCH (15:02)
[2020-05-11] MEDS: AMIODARONE 450mg/250ml AE 250 ML IV SCH (16:27)
[2020-05-11 18:41] VITALS: BP 89/59
[2020-05-11 22:45] VITALS: BP 106/78
[2020-05-12] MEDS: ACCU-CHEK COMFORT CURVE STRIP VI SCH ×5 (00:13→23:38)
[2020-05-12] MEDS: InsuLIN REG 1unit/0.01ml Soln (100units/ml) SC SCH ×5 (00:14→23:38)
[2020-05-12] MEDS: AMIODARONE 450mg/250ml AE 250 ML IV SCH ×2 (00:57→22:15)
[2020-05-12] MEDS: PROPOFOL 100 ML IV SCH ×2 (00:59→04:21)
[2020-05-12 02:34] VITALS: BP 110/68
[2020-05-12 06:00] VITALS: BP 113/68
[2020-05-12 09:41] LABS: Basophils # (auto) 0 10 ^3/uL (0-0.2); Eosinophils # (auto) 0 10 ^3/uL (0-0.8); Hematocrit 48.5 % (41.0-53.0); Hemoglobin 15.4 g/dL (13.5-17.5); Lymphocytes # (auto) 1.1 10 ^3/uL (0.4-5.4); Mean Corpuscular Hemoglobin 27.2 pg (28.0-32.0); Mean Corpuscular Hgb Conc. 31.7 g/dL (32.0-36.0); Mean Corpuscular Volume 85.7 fL (80.0-100.0); Monocytes # (auto) 1.4 10 ^3/uL (0-1.3); Monocytes % (auto) 10.8 % (0.0-12.0); Neutrophils # (auto) 10.2 10 ^3/uL (1.6-8.6); Neutrophils % (auto) 80.2 % (37.0-80.0); Nucleated Red Blood Cells % 0.1 %; Platelet Count (auto) 221 10^3/uL (140-450); Red Blood Cells 5.65 10^6/uL (4.5-5.90); Red Cell Distribution Width 19.5 % (11.8-14.3); White Blood Cell 12.7 10^3/uL (4.4-10.8)
[2020-05-12 10:04] LABS: Potassium 4.6 mmol/L (3.5-5.1)
[2020-05-12 10:27] LABS: Albumin 3.1 g/dL (3.4-5.0); BUN/Creatinine Ratio 34.5; Bilirubin, Total 1.8 mg/dL (0.2-1.0); Calcium 7.9 mg/dL (8.5-10.1); Total Protein 6.4 g/dL (6.4-8.2)
[2020-05-12] MEDS: cefTRIAXone 1GM/50ML D5W 50 ML IV SCH (10:37)
[2020-05-12] MEDS: AZITHROMYCIN 500MG/D5WorNS 250ml IV SCH (10:38)
[2020-05-12] MEDS: DexAMETHasone SOD PHOS 10MG/1ML VIAL INJ IV SCH (10:38)
[2020-05-12] MEDS: ZINC SULFATE 220mg CAP or TAB PO SCH (10:38)
[2020-05-12] MEDS: ENOXAPARIN SOD 40 MG/0.4 ML SYRINGE SC SCH (10:39)
[2020-05-12] MEDS: ASCORBIC ACID 1,000 MG TAB PO SCH (10:39)
[2020-05-12] MEDS: CHOLECALCIFEROL (VITD3) 2,000 UNIT CAP PO SCH (10:39)
[2020-05-12] MEDS: fentaNYL Drip 2500mCg/250mlNS 250 ML IV SCH (11:00)
[2020-05-12] MEDS: NOREPINEPHRINE 8 MG/250ML KIT 250 ML IV SCH (13:45)
[2020-05-12 13:52] VITALS: BP 99/74
[2020-05-12] MEDS: REMDESIVIR 100 MG in SODIUM CHL 0.9% 250 ML IV SCH (15:00)
[2020-05-12 18:13] VITALS: BP 114/78
[2020-05-12] MEDS: ENOXAPARIN SOD 120 MG/0.8 ML SYRINGE SC SCH (22:35)
[2020-05-12 22:39] VITALS: BP 129/89
[2020-05-13 01:33] VITALS: BP 144/109
[2020-05-13 05:14] LABS: Basophils # (auto) 0 10 ^3/uL (0-0.2); Eosinophils # (auto) 0 10 ^3/uL (0-0.8); Hematocrit 50.1 % (41.0-53.0); Hemoglobin 15.8 g/dL (13.5-17.5); Lymphocytes # (auto) 1.1 10 ^3/uL (0.4-5.4); Lymphocytes % (auto) 7.8 % (10.0-50.0); Mean Corpuscular Hemoglobin 27.1 pg (28.0-32.0); Mean Corpuscular Hgb Conc. 31.5 g/dL (32.0-36.0); Monocytes # (auto) 1.6 10 ^3/uL (0-1.3); Monocytes % (auto) 11.1 % (0.0-12.0); Neutrophils # (auto) 11.6 10 ^3/uL (1.6-8.6); Neutrophils % (auto) 81.1 % (37.0-80.0); Nucleated Red Blood Cells % 0.1 %; Platelet Count (auto) 210 10^3/uL (140-450); Red Blood Cells 5.83 10^6/uL (4.5-5.90); White Blood Cell 14.4 10^3/uL (4.4-10.8)
[2020-05-13 05:32] LABS: Potassium 4.7 mmol/L (3.5-5.1)
[2020-05-13] MEDS: ACCU-CHEK COMFORT CURVE STRIP VI SCH ×3 (05:50→18:33)
[2020-05-13] MEDS: InsuLIN REG 1unit/0.01ml Soln (100units/ml) SC SCH ×4 (05:51→23:59)
[2020-05-13 06:01] LABS: Bilirubin, Total 2.3 mg/dL (0.2-1.0); Calcium 7.9 mg/dL (8.5-10.1); Total Protein 6.1 g/dL (6.4-8.2)
[2020-05-13 06:03] LABS: INR 1.86 (0.9-1.15); Partial Thromboplastin Time 33.1 sec (23.0-31.2)
[2020-05-13 06:06] LABS: Red Cell Distribution Width 20.3 % (11.8-14.3)
[2020-05-13 06:15] VITALS: BP 127/90
[2020-05-13] MEDS: PROPOFOL 100 ML IV SCH ×2 (09:18→22:12)
[2020-05-13] MEDS: cefTRIAXone 1GM/50ML D5W 50 ML IV SCH (11:30)
[2020-05-13] MEDS: AMIODARONE HCL 200 MG TAB GT SCH ×2 (11:30→22:19)
[2020-05-13] MEDS: CHOLECALCIFEROL (VITD3) 2,000 UNIT CAP PO SCH (11:31)
[2020-05-13] MEDS: ENOXAPARIN SOD 120 MG/0.8 ML SYRINGE SC SCH ×2 (11:31→22:00)
[2020-05-13] MEDS: DexAMETHasone SOD PHOS 10MG/1ML VIAL INJ IV SCH (11:31)
[2020-05-13] MEDS: ASCORBIC ACID 1,000 MG TAB PO SCH (11:31)
[2020-05-13] MEDS: ZINC SULFATE 220mg CAP or TAB PO SCH (11:54)
[2020-05-13] MEDS: AZITHROMYCIN 500MG/D5WorNS 250ml IV SCH (11:54)
[2020-05-13] MEDS: SOD CHL 0.45% 1,000 ML IV SCH (11:55)
[2020-05-13] MEDS: NOREPINEPHRINE 8 MG/250ML KIT 250 ML IV SCH ×2 (13:45→16:35)
[2020-05-13 14:42] VITALS: BP 94/57
[2020-05-13] MEDS: fentaNYL Drip 2500mCg/250mlNS 250 ML IV SCH (15:06)
[2020-05-13 18:50] VITALS: BP 107/47
[2020-05-13 22:40] VITALS: BP 111/73
[2020-05-14] MEDS: SOD CHL 0.45% 1,000 ML IV SCH ×2 (00:54→13:56)
[2020-05-14 02:20] VITALS: BP 104/69
[2020-05-14] MEDS: ACCU-CHEK COMFORT CURVE STRIP VI SCH ×4 (06:03→16:26)
[2020-05-14] MEDS: InsuLIN REG 1unit/0.01ml Soln (100units/ml) SC SCH ×3 (06:07→16:27)
[2020-05-14 07:09] VITALS: BP 109/57
[2020-05-14 07:46] LABS: Basophils # (auto) 0 10 ^3/uL (0-0.2); Basophils % (auto) 0.1 % (0.0-2.0); Eosinophils # (auto) 0 10 ^3/uL (0-0.8); Hematocrit 44.7 % (41.0-53.0); Hemoglobin 14.3 g/dL (13.5-17.5); Lymphocytes # (auto) 0.7 10 ^3/uL (0.4-5.4); Lymphocytes % (auto) 5.7 % (10.0-50.0); Mean Corpuscular Hemoglobin 27.2 pg (28.0-32.0); Mean Corpuscular Hgb Conc. 32.1 g/dL (32.0-36.0); Mean Corpuscular Volume 84.7 fL (80.0-100.0); Monocytes # (auto) 0.8 10 ^3/uL (0-1.3); Monocytes % (auto) 6.6 % (0.0-12.0); Neutrophils # (auto) 11.2 10 ^3/uL (1.6-8.6); Neutrophils % (auto) 87.6 % (37.0-80.0); Nucleated Red Blood Cells % 0.2 %; Platelet Count (auto) 190 10^3/uL (140-450); Red Blood Cells 5.28 10^6/uL (4.5-5.90); Red Cell Distribution Width 20.3 % (11.8-14.3); White Blood Cell 12.8 10^3/uL (4.4-10.8)
[2020-05-14 08:00] LABS: INR 1.52 (0.9-1.15)
[2020-05-14 08:12] LABS: Albumin 2.4 g/dL (3.4-5.0); Calcium 7.4 mg/dL (8.5-10.1)
[2020-05-14 08:20] LABS: Bilirubin, Total 1.9 mg/dL (0.2-1.0)
[2020-05-14] MEDS: AMIODARONE HCL 200 MG TAB GT SCH (08:52)
[2020-05-14] MEDS: DexAMETHasone SOD PHOS 10MG/1ML VIAL INJ IV SCH (08:52)
[2020-05-14] MEDS: cefTRIAXone 1GM/50ML D5W 50 ML IV SCH (08:52)
[2020-05-14] MEDS: ENOXAPARIN SOD 120 MG/0.8 ML SYRINGE SC SCH (08:53)
[2020-05-14] MEDS: ASCORBIC ACID 1,000 MG TAB PO SCH (08:53)
[2020-05-14] MEDS: CHOLECALCIFEROL (VITD3) 2,000 UNIT CAP PO SCH (08:53)
[2020-05-14] MEDS: ZINC SULFATE 220mg CAP or TAB PO SCH (08:53)
[2020-05-14] MEDS: AZITHROMYCIN 500MG/D5WorNS 250ml IV SCH (08:53)
[2020-05-14] MEDS: PROPOFOL 100 ML IV SCH (11:58)
[2020-05-14] MEDS: NOREPINEPHRINE 8 MG/250ML KIT 250 ML IV SCH (13:56)
[2020-05-14] MEDS ORDERED: PHYTONADIONE (VIT K)10 MG/ML 1ML VIAL SUBCUT ONE (14:30)
[2020-05-14] MEDS: fentaNYL Drip 2500mCg/250mlNS 250 ML IV SCH (14:54)
[2020-05-14 18:20] VITALS: BP 104/64
[2020-05-14 22:20] VITALS: BP 112/76
[2020-05-15] VITALS (7 sets, daily range): BP systolic 93–139; BP diastolic 55–80
[2020-05-15] MEDS: InsuLIN REG 1unit/0.01ml Soln (100units/ml) SC SCH ×4 (00:38→18:13)
[2020-05-15] MEDS: ACCU-CHEK COMFORT CURVE STRIP VI SCH ×4 (00:38→18:13)
[2020-05-15] MEDS: PROPOFOL 100 ML IV SCH ×2 (01:29→15:23)
[2020-05-15] MEDS: SOD CHL 0.45% 1,000 ML IV SCH (02:36)
[2020-05-15 05:47] LABS: Basophils # (auto) 0 10 ^3/uL (0-0.2); Eosinophils # (auto) 0 10 ^3/uL (0-0.8); Lymphocytes # (auto) 0.5 10 ^3/uL (0.4-5.4); Mean Corpuscular Hemoglobin 26.8 pg (28.0-32.0); Mean Corpuscular Hgb Conc. 31.5 g/dL (32.0-36.0); White Blood Cell 11.7 10^3/uL (4.4-10.8)
[2020-05-15 05:50] LABS: Hematocrit 43.8 % (41.0-53.0); Hemoglobin 13.8 g/dL (13.5-17.5); Lymphocytes % (auto) 4.2 % (10.0-50.0); Mean Corpuscular Volume 85.1 fL (80.0-100.0); Monocytes # (auto) 0.9 10 ^3/uL (0-1.3); Monocytes % (auto) 7.3 % (0.0-12.0); Neutrophils # (auto) 10.4 10 ^3/uL (1.6-8.6); Neutrophils % (auto) 88.5 % (37.0-80.0); Platelet Count (auto) 208 10^3/uL (140-450); Red Blood Cells 5.14 10^6/uL (4.5-5.90)
[2020-05-15 05:52] LABS: Potassium 4.8 mmol/L (3.5-5.1)
[2020-05-15 06:04] LABS: INR 1.3 (0.9-1.15); Partial Thromboplastin Time 29.5 sec (23.0-31.2)
[2020-05-15 06:05] LABS: Albumin 2.2 g/dL (3.4-5.0); BUN/Creatinine Ratio 44.4; Bilirubin, Total 1.4 mg/dL (0.2-1.0); Calcium 7.8 mg/dL (8.5-10.1)
[2020-05-15] MEDS: cefTRIAXone 1GM/50ML D5W 50 ML IV SCH (08:09)
[2020-05-15] MEDS: ASCORBIC ACID 1,000 MG TAB PO SCH (08:10)
[2020-05-15] MEDS: DexAMETHasone SOD PHOS 10MG/1ML VIAL INJ IV SCH (08:10)
[2020-05-15] MEDS: ZINC SULFATE 220mg CAP or TAB PO SCH (08:10)
[2020-05-15] MEDS: CHOLECALCIFEROL (VITD3) 2,000 UNIT CAP PO SCH (08:10)
[2020-05-15] MEDS: AZITHROMYCIN 500MG/D5WorNS 250ml IV SCH (08:10)
[2020-05-15] MEDS: DIGOXIN 0.125 MG TAB PO SCH (08:10)
[2020-05-15] MEDS: NOREPINEPHRINE 8 MG/250ML KIT 250 ML IV SCH (13:45)
[2020-05-15] MEDS: fentaNYL Drip 2500mCg/250mlNS 250 ML IV SCH (15:25)
[2020-05-16] MEDS: ACCU-CHEK COMFORT CURVE STRIP VI SCH ×2 (01:11→06:00)
[2020-05-16] MEDS: InsuLIN REG 1unit/0.01ml Soln (100units/ml) SC SCH ×2 (01:12→06:00)
[2020-05-16] MEDS ORDERED: PROPOFOL 100 ML IV ONE ×2 (01:18→08:46)
[2020-05-16] MEDS: PROPOFOL 100 ML IV SCH (04:40)
[2020-05-16 05:53] LABS: Basophils # (auto) 0 10 ^3/uL (0-0.2); Basophils % (auto) 0.1 % (0.0-2.0); Eosinophils # (auto) 0 10 ^3/uL (0-0.8); Hematocrit 43.7 % (41.0-53.0); Hemoglobin 13.9 g/dL (13.5-17.5); Lymphocytes # (auto) 0.5 10 ^3/uL (0.4-5.4); Lymphocytes % (auto) 5.5 % (10.0-50.0); Mean Corpuscular Hemoglobin 27.3 pg (28.0-32.0); Mean Corpuscular Hgb Conc. 31.9 g/dL (32.0-36.0); Mean Corpuscular Volume 85.6 fL (80.0-100.0); Monocytes # (auto) 0.7 10 ^3/uL (0-1.3); Monocytes % (auto) 8.1 % (0.0-12.0); Neutrophils # (auto) 7.4 10 ^3/uL (1.6-8.6); Neutrophils % (auto) 86.3 % (37.0-80.0); Nucleated Red Blood Cells % 0.1 %; Platelet Count (auto) 155 10^3/uL (140-450); Red Cell Distribution Width 19.8 % (11.8-14.3); White Blood Cell 8.6 10^3/uL (4.4-10.8)
[2020-05-16 06:05] LABS: Potassium 4.9 mmol/L (3.5-5.1)
[2020-05-16 06:17] LABS: Albumin 2.3 g/dL (3.4-5.0); BUN/Creatinine Ratio 44.7; Bilirubin, Total 1.2 mg/dL (0.2-1.0); Calcium 7.8 mg/dL (8.5-10.1); Total Protein 5.1 g/dL (6.4-8.2)
[2020-05-16 06:25] VITALS: BP 100/71
[2020-05-16] MEDS ORDERED: fentaNYL Drip 2500mCg/250mlNS 250 ML IV ONE (08:46)
[2020-05-16] MEDS: cefTRIAXone 1GM/50ML D5W 50 ML IV SCH (09:00)
[2020-05-16 10:45] VITALS: BP 100/69
[2020-05-16] MEDS: DIGOXIN 0.125 MG TAB PO SCH (11:18)
[2020-05-16] MEDS: ZINC SULFATE 220mg CAP or TAB PO SCH (11:18)
[2020-05-16] MEDS: DexAMETHasone SOD PHOS 10MG/1ML VIAL INJ IV SCH (11:18)
[2020-05-16] MEDS: CHOLECALCIFEROL (VITD3) 2,000 UNIT CAP PO SCH (11:18)
[2020-05-16] MEDS: ASCORBIC ACID 1,000 MG TAB PO SCH (11:18)
[2020-05-16 11:30] VITALS: BP 99/76
[2020-05-16] MEDS ORDERED: MORPHINE SULF INJ 2 MG/ML SYRINGE 1ML IV PRN (12:00)
[2020-05-16] MEDS ORDERED: LORazepam 2MG/ML-1ML VIAL IV PRN (12:00)
== END 2020-05-16 13:34 | DRG 870 ==
LOC: ER 10:03 → EDBD 10:03 → TELE 14:52
PROVIDERS: ADMIT Nurse Practitioner Acute Care; ATTEND Internal Medicine
PROC: 5A1955Z Respiratory Ventilation, Greater than 96 Consecutive Hours (ICD-10-PCS; principal; 2020-05-10)
PROC: 0BH17EZ Insertion of Endotracheal Airway into Trachea, Via Natural or Artificial Opening (ICD-10-PCS; 2020-05-10)
PROC: XW033E5 Introduction of Remdesivir Anti-infective into Peripheral Vein, Percutaneous Approach, New Technology Group 5 (ICD-10-PCS; 2020-05-10)
PROC: XW13325 Transfusion of Convalescent Plasma (Nonautologous) into Peripheral Vein, Percutaneous Approach, New Technology Group 5 (ICD-10-PCS; 2020-05-15)
DX: A41.89 Other specified sepsis (principal); U07.1 COVID-19; J12.89 Other viral pneumonia; J96.22 Acute and chronic respiratory failure with hypercapnia; J96.21 Acute and chronic respiratory failure with hypoxia; N17.0 Acute kidney failure with tubular necrosis; I50.43 Acute on chronic combined systolic (congestive) and diastolic (congestive) heart failure; J98.11 Atelectasis; E44.0 Moderate protein-calorie malnutrition; I48.20 Chronic atrial fibrillation, unspecified; J44.0 Chronic obstructive pulmonary disease with (acute) lower respiratory infection; J44.1 Chronic obstructive pulmonary disease with (acute) exacerbation; Z99.11 Dependence on respirator [ventilator] status; D68.9 Coagulation defect, unspecified; Z68.41 Body mass index [BMI] 40.0-44.9, adult; Z66 Do not resuscitate; Z51.5 Encounter for palliative care; E11.9 Type 2 diabetes mellitus without complications; E66.01 Morbid (severe) obesity due to excess calories; E05.90 Thyrotoxicosis, unspecified without thyrotoxic crisis or storm; E78.5 Hyperlipidemia, unspecified; F17.210 Nicotine dependence, cigarettes, uncomplicated; M54.9 Dorsalgia, unspecified; G89.21 Chronic pain due to trauma; I11.0 Hypertensive heart disease with heart failure; R04.0 Epistaxis; Z59.0 Homelessness; Z79.01 Long term (current) use of anticoagulants; Z79.4 Long term (current) use of insulin; Z99.81 Dependence on supplemental oxygen
CPT/HCPCS: 31500; 36415; 36556; 36600; 51702; 70450; 70486; 71045; 74018; 80053; 81001; 82728; 82805; 82962; 83036; 83615; 83735; 83880; 84443; 84484; 85025; 85379; 85610; 85730; 86141; 86850; 86900; 86901; 87040; 87070; 87205; 87426; 87804; 93005; 93306; 94003; 96365; 96375; 99291; G0378; J0330; J0696; J1100; J1815; J2704; J3430; J3490; J7060